=== PATIENT | female | born 1980 | race Caucasian/White ===

== ENCOUNTER 2019-09-23 15:36 | Emergency (ER) | payer OTHER ==
[~2019-09-23] VITALS: Ht 160 cm; Wt 90.7 kg
[~2019-09-23 15:36] MED LIST: CARISOPRODOL 3350 MG PO; EFFEXOR XR75 MG PO; PERCOCET 10-321 EACH PO; XANAX 0.25 MG0.25 MG PO
[2019-09-23] MEDS ORDERED: LYRICA100 MG PO (15:58)
[2019-09-23] MEDS ORDERED: TIZANIDINE HCL4 M1 PO (15:59)
[2019-09-23] MEDS ORDERED: NORCO 5-325 TA1 EAC1 PO (16:08)
[2019-09-23 16:16] VITALS: BP 112/79
== END 2019-09-23 16:16 | disposition home or self-care (01) ==
LOC: ER 15:36
DX: M54.12 Radiculopathy, cervical region (principal); M25.511 Pain in right shoulder; M54.2 Cervicalgia; J45.909 Unspecified asthma, uncomplicated; G43.909 Migraine, unspecified, not intractable, without status migrainosus; M79.7 Fibromyalgia; F17.210 Nicotine dependence, cigarettes, uncomplicated; Z79.899 Other long term (current) drug therapy; Z88.1 Allergy status to other antibiotic agents; Z88.8 Allergy status to other drugs, medicaments and biological substances

== ENCOUNTER 2019-09-26 19:51 | Emergency (ER) | payer OTHER ==
[~2019-09-26] VITALS: Ht 160 cm; Wt 90.7 kg
[~2019-09-26 19:51] MED LIST changes: +LYRICA100 MG PO; +NORCO 5-325 TA1 EAC1 PO; +TIZANIDINE HCL4 M1 PO
[2019-09-26 21:09] LABS: ABSOLUTE NEUTROPHILS 3.8 thou/uL (1.4-8.2); BASOPHILS 0.9 % (0.0-2.0); EOSINOPHILS 4.4 % (0.0-3.0); HEMATOCRIT 37.7 % (37.0-47.0); HEMOGLOBIN 12.2 gm/dL (12.0-15.0); LYMPHOCYTES 36.4 % (24.0-44.0); MCH 25.6 pg (26.0-34.0); MCHC 32.3 g/dL (28.0-37.0); MCV 79.1 fL (80.0-100.0); MONOCYTES 7.2 % (1.0-8.0); PLATELET COUNT 251 thou/uL (150-400); POLYS 51.1 % (36.0-66.0); RBC 4.77 mil/uL (4.20-5.00); WBC 7.4 thou/uL (4.0-11.0)
[2019-09-26 21:17] LABS: ANION GAP 8 mmol/L (7-16); BUN 16 mg/dL (7-18); CALCIUM 8.6 mg/dL (8.5-10.1); CHLORIDE 102 mmol/L (98-107); CO2 28 mmol/L (21-32); CREATININE 0.7 mg/dL (0.6-1.0); GLUCOSE 111 mg/dL (74-106); POTASSIUM 3.8 mmol/L (3.5-5.1); SODIUM 138 mmol/L (136-145)
[2019-09-26 21:27] LABS: ALBUMIN 3.3 g/dL (3.4-5.0); SGOT 59 U/L (15-37); SGPT 155 U/L (30-65); TOTAL BILIRUBIN 0.2 mg/dL (<0.1-1.0); TOTAL PROTEIN 6.8 g/dL (6.4-8.2); TROPONIN-I <0.06 ng/mL (<0.06)
[2019-09-26] MEDS ORDERED: ELIQUIS5 MG PO (21:38)
[2019-09-26] MEDS ORDERED: PROZAC20 M1 PO (21:38)
[2019-09-26] MEDS ORDERED: NORCO 5-325 TA1 EAC1 PO (22:56)
--- NOTE | 2019-09-26 23:06 | EKG ---
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
[2019-09-26 23:21] VITALS: BP 120/74
== END 2019-09-26 23:24 | disposition home or self-care (01) ==
LOC: ER 19:51
PROVIDERS: Emergency Medicine
DX: M54.12 Radiculopathy, cervical region (principal); M79.621 Pain in right upper arm; J45.909 Unspecified asthma, uncomplicated; G43.909 Migraine, unspecified, not intractable, without status migrainosus; F17.210 Nicotine dependence, cigarettes, uncomplicated; Z79.899 Other long term (current) drug therapy; Z88.1 Allergy status to other antibiotic agents; Z88.8 Allergy status to other drugs, medicaments and biological substances

== ENCOUNTER 2019-11-26 18:06 | Emergency (ER) | payer OTHER ==
[~2019-11-26] VITALS: Ht 157.5 cm; Wt 113.4 kg
[~2019-11-26 18:06] MED LIST changes: +ELIQUIS5 MG PO; +PROZAC20 M1 PO
[2019-11-26 18:52] LABS: APTT 25.2 Seconds (24.5-32.8); D-DIMER 0.22 ug/mLFEU (0.19-0.50); PROTIME 10.1 Seconds (9.3-11.4)
[2019-11-26 20:02] LABS: URINE BILIRUBIN NEGATIVE (Negative); URINE BLOOD TRACE (Negative); URINE CLARITY CLEAR; URINE COLOR YELLOW; URINE GLUCOSE-RANDOM* NEGATIVE (Negative); URINE KETONES NEGATIVE (Negative); URINE NITRITE-REFLEX NEGATIVE (Negative); URINE PROTEIN (DIPSTICK) NEGATIVE (Negative); URINE SPECIFIC GRAVITY 1.025 (1.005-1.035); URINE UROBILINOGEN 0.2 E.U./dl (0.2-1.0)
[2019-11-26 20:03] LABS: URINE LEUKOCYTES-REFLEX 1+ (Negative)
[2019-11-26 20:11] LABS: AMP/METHAMP Negative (Negative); BARBITURATES POSITIVE (Negative); BENZODIAZEPINES POSITIVE (Negative); COCAINE Negative (Negative); METHADONE Negative (Negative); OPIATES POSITIVE (Negative); PCP Negative (Negative)
[2019-11-26 20:17] VITALS: BP 127/85
[2019-11-26 20:17] LABS: CASTS None Seen /LPF (None Seen); CRYSTALS None Seen /LPF (None Seen); SQUAMOUS 4-10 Moderate /LPF (0-3); YEAST-REFLEX Present (None Seen)
[2019-11-26 20:18] LABS: BACTERIA-REFLEX 1-9 Few /HPF (None Seen); URINE RBC 0-2 Rare /HPF (0-2); URINE WBC-REFLEX 6-15 Few /HPF (0-5)
--- NOTE | 2019-11-27 14:04 | EKG ---
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
--- NOTE | 2019-11-27 14:04 | EKG ---
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
== END 2019-11-26 20:10 | disposition home or self-care (01) ==
LOC: ER 18:06
PROVIDERS: Emergency Medicine
DX: R07.89 Other chest pain (principal); M50.30 Other cervical disc degeneration, unspecified cervical region; M79.7 Fibromyalgia; J45.909 Unspecified asthma, uncomplicated; G43.909 Migraine, unspecified, not intractable, without status migrainosus; E66.01 Morbid (severe) obesity due to excess calories; F17.210 Nicotine dependence, cigarettes, uncomplicated; Z86.711 Personal history of pulmonary embolism; Z88.1 Allergy status to other antibiotic agents; Z88.6 Allergy status to analgesic agent; Z79.899 Other long term (current) drug therapy; Z90.710 Acquired absence of both cervix and uterus